=== PATIENT | male | born 1990 | race Caucasian/White ===

== ENCOUNTER 2023-03-17 10:13 | Emergency (ER) | payer SELFPAY ==
[~2023-03-17] VITALS: Ht 172.7 cm; Wt 73.0 kg
[2023-03-17 10:16] VITALS: BP 157/110
== END 2023-03-17 10:35 | disposition home or self-care (01) ==
LOC: ER 10:13
DX: F41.9 Anxiety disorder, unspecified (principal); I10 Essential (primary) hypertension
CPT/HCPCS: 99283